=== PATIENT | female | born 1960 | race Caucasian/White ===

== ENCOUNTER → 2018-08-27 | Outpatient (CLI) | payer MEDICARE, MEDICAID ==
[2018-08-27 12:10] LABS: ABSOLUTE BASOPHILS # (AUTO) 0.1 10^3/uL (0.0-0.2); ABSOLUTE EOSINOPHILS # (AUTO) 0.1 10^3/uL (0.0-0.6); ABSOLUTE LYMPHOCYTES (AUTO) 2.4 10^3/uL (0.5-4.7); ABSOLUTE MONOCYTES (AUTO) 0.6 10^3/uL (0.1-1.4); ABSOLUTE NEUT (AUTO) 6.8 10^3/uL (1.7-8.2); BASOPHILS % (AUTO) 0.5 % (0-2); EOSINOPHILS % (AUTO) 1.5 % (0-6); HEMATOCRIT 44.1 % (36.0-47.0); HEMOGLOBIN 15.2 g/dL (12.0-15.5); LYMPHOCYTES % (AUTO) 24.1 % (13-45); MEAN CORPUSCULAR HEMOGLOBIN 32.8 pg (27.0-33.4); MEAN CORPUSCULAR HGB CONC 34.4 g/dL (32.0-36.0); MEAN CORPUSCULAR VOLUME 96 fl (80-97); MONOCYTES % (AUTO) 5.9 % (3-13); PLATELET COUNT 282 10^3/uL (150-450); RED BLOOD COUNT 4.62 10^6/uL (3.72-5.28); RED CELL DISTRIBUTION WIDTH 13.1 % (11.5-14.0); TOTAL CELLS COUNTED % (AUTO) 100 %; WHITE BLOOD COUNT 9.9 10^3/uL (4.0-10.5)
[2018-08-28 14:38] LABS: CREATININE URINE 12.3 mg/dL (Not Estab.)
[2018-08-28 14:55] LABS: MICROALBUMIN URINE <3.0 ug/mL (Not Estab.)
[2018-08-29 10:53] LABS: CHOLESTEROL 186.43 mg/dL (0-200); TRIGLYCERIDES 166 mg/dL (<150)
[2018-08-29 11:04] LABS: DIRECT LDL 111 mg/dL (<100)
[2018-08-29 11:07] LABS: VLDL CHOLESTEROL 33.2 mg/dL (10-31)
[2018-08-29 15:51] LABS: ALBUMIN 4.1 g/dL (3.5-5.0); ANION GAP 11 (5-19); BLOOD UREA NITROGEN 21 mg/dL (7-20); CALCIUM 10.9 mg/dL (8.4-10.2); CARBON DIOXIDE 24 mmol/L (22-30); CHLORIDE 105 mmol/L (98-107); GLUCOSE 116 mg/dL (75-110); PHOSPHORUS 3.4 mg/dL (2.5-4.5)
== END ==
LOC: OD 11:15
PROVIDERS: ATTEND Internal Medicine Nephrology
DX: I12.9 Hypertensive chronic kidney disease with stage 1 through stage 4 chronic kidney disease, or unspecified chronic kidney disease (principal); N18.3 Chronic kidney disease, stage 3 (moderate); R60.9 Edema, unspecified
CPT/HCPCS: 36415; 80061; 80069; 82043; 82306; 82570; 83970; 85025

== ENCOUNTER → 2018-12-18 | Outpatient (CLI) | payer MEDICARE, MEDICAID ==
[2018-12-18 10:40] LABS: ANION GAP 8 (5-19); BLOOD UREA NITROGEN 23 mg/dL (7-20); CALCIUM 10.6 mg/dL (8.4-10.2); CARBON DIOXIDE 28 mmol/L (22-30); CHLORIDE 105 mmol/L (98-107); GLUCOSE 113 mg/dL (75-110); POTASSIUM 4.8 mmol/L (3.6-5.0)
== END ==
LOC: OD 09:46
PROVIDERS: ATTEND Internal Medicine Nephrology
DX: I12.9 Hypertensive chronic kidney disease with stage 1 through stage 4 chronic kidney disease, or unspecified chronic kidney disease (principal); N18.3 Chronic kidney disease, stage 3 (moderate); R60.9 Edema, unspecified; E55.9 Vitamin D deficiency, unspecified
CPT/HCPCS: 36415; 80048; 82306

== ENCOUNTER → 2019-02-04 | Outpatient (CLI) | payer MEDICARE, MEDICAID ==
--- NOTE | 2019-02-04 09:49 | RADIOLOGY REPORT (SQ) ---
EXAM DESCRIPTION: MRI LT LOWER JOINT WITHOUT COMPLETED DATE/TIME: 02/04/2019 9:33 am REASON FOR STUDY: M25.562 PAIN IN LEFT KNEE M25.562 PAIN IN LEFT KNEE COMPARISON: None. TECHNIQUE: Leftknee images acquired and stored on PACS. Multiplanar images include fat sensitive se quences as T1, water sensitive sequences as FST2 or STIR, cartilage sensitive sequences as FSPD, and gradient echo sequences. LIMITATIONS: Motion artifact FINDINGS: JOINT AND BURSAE: No effusion. BONE CORTEX AND MARROW: No marrow signal abnormality worrisome for occult fracture ACL: Old anterior cruciate ligament graft with anchoring screws in the distal femur and proximal tibi a. The graft is torn on coronal images 16-19, and sagittal images 12-14. PCL: Intact. MCL: Intact. No periligamentous edema or fluid. LCL: Intact. No periligamentous edema or fluid. MEDIAL MENISCUS: There is diffuse horizontal band of increased signal throughout the medial meniscus without extension to the articular surface best shown on coronal images 14-19 and sagittal image 6. This could represent degenerative intrameniscal signal rather than tear. No no parameniscal cyst. LATERAL MENISCUS: There is a horizontal tear along the midbody lateral meniscus without parameniscal cyst, best shown on coronal images 17-19 and sagittal images 19-21. MEDIAL COMPARTMENT: Cartilage preserved. No bone bruises or reactive marrow edema. No osteophytes. LATERAL COMPARTMENT: Cartilage preserved. No bone bruises or reactive marrow edema. No osteophytes. PATELLA: No chondromalacia. No subchondral cysts. Medial and lateral retinacula intact. EXTENSOR MECHANISM: Intact. Quadriceps tendon normal. Old harvest site for ACL graft in the patellar tendon SOFT TISSUES: Adjacent muscles and subcutaneous tissues normal. Normal flow void in popliteal artery and vein. OTHER: No other significant finding. IMPRESSION: Re-injury of the ACL graft, currently torn. Definite tear of the midbody lateral meniscus Possible tear throughout the medial meniscus TECHNICAL DOCUMENTATION: JOB ID: [id number]- All Rights Reserved Reading location - IP/workstation name: [email or web address]
== END ==
LOC: RAD 08:41
PROVIDERS: ATTEND Physician Assistant
DX: M25.562 Pain in left knee (principal)